=== PATIENT | female | born 1950 | race Caucasian/White ===

== ENCOUNTER 2019-07-20 21:01 | Emergency (ER) | payer SELFPAY ==
[~2019-07-20] VITALS: Ht 147.3 cm; Wt 70.8 kg
[~2019-07-20 21:01] MED LIST: ASPI81EC97 PO; CARV3.122 PO; ENAL5TAB21 PO; NITR0.4T1 SL
[2019-07-20 21:05] VITALS: BP 137/83
--- NOTE | 2019-07-20 21:18 | NUR ---
PT AMBULATED TO ER BED 3
--- NOTE | 2019-07-20 21:20 | NUR ---
DR. GOMEZ BEDSIDE EVALUATING PT
--- NOTE | 2019-07-20 21:28 | NUR ---
69 Y/O FEMALE C/O COUGH FOR TWO WEEKS. A/OX4 AND FOLLOWS COMMANDS. BREATH SOUNDS ARE CLEAR/DIMINISHED. BREATHING UNLABORED AND EQUAL. PT. STATES THAT SHE HAS A PRODUCTIVE COUGH WITH YELLOW SPUTUM. DENIES N/V/D. PT. ALSO STATES THAT SHE AHS DYSURIA. ERMD MADE AWARE OF STATUS. SIDERAILSX1. PMH:HTN NKDA RX: ATENOLOL; IBUPROFEN; AMITRYPTILLINE
--- NOTE | 2019-07-20 21:31 | NUR ---
RAD AT BEDSIDE.
[2019-07-20 22:00] VITALS: BP 137/83
--- NOTE | 2019-07-20 22:01 | NUR ---
Patient discharged with v/s stable. Written and verbal after care instructions given and explained. Patient alert, oriented and verbalized understanding of instructions. Ambulatory with steady gait. All questions addressed prior to discharge. ID band removed. Patient advised to follow up with PMD. Rx of AMOXICILLIN, BACTRIM, PROMETHAZINE WAS given. Patient educated on indication of medication including possible reaction and side effects. Opportunity to ask questions provided and answered.
--- NOTE | 2019-07-20 22:02 | NUR ---
PT WAS GIVEN 24 HOURS PHARMACY RESOURCES
== END 2019-07-20 22:02 | disposition home or self-care (01) ==
LOC: MED 21:01
DX: J02.8 Acute pharyngitis due to other specified organisms (principal); B96.89 Other specified bacterial agents as the cause of diseases classified elsewhere; B97.89 Other viral agents as the cause of diseases classified elsewhere; I10 Essential (primary) hypertension; Z90.710 Acquired absence of both cervix and uterus; Z79.82 Long term (current) use of aspirin; Z79.899 Other long term (current) drug therapy
CPT/HCPCS: 71045; 81002; 99284; Q0092